=== PATIENT | female | born 1980 | race Caucasian/White ===

== ENCOUNTER 2018-01-03 09:04 | Emergency (ER) | payer SELFPAY | END 2018-01-03 09:58 | disposition home or self-care (01) | LOC: ERS 09:04 | DX: F10.10 Alcohol abuse, uncomplicated (principal); J45.909 Unspecified asthma, uncomplicated; F17.210 Nicotine dependence, cigarettes, uncomplicated | CPT/HCPCS: 99284 ==

== ENCOUNTER 2018-02-14 23:54 | Emergency (ER) | payer SELFPAY | END 2018-02-15 00:12 | disposition home or self-care (01) | LOC: ERS 23:54 | DX: F10.129 Alcohol abuse with intoxication, unspecified (principal); L55.0 Sunburn of first degree; J45.909 Unspecified asthma, uncomplicated; F17.210 Nicotine dependence, cigarettes, uncomplicated; F20.9 Schizophrenia, unspecified | CPT/HCPCS: 99284 ==